=== PATIENT | female | born 1985 | race Caucasian/White ===

== ENCOUNTER 2020-08-21 15:24 | Outpatient (CLI) | payer OTHER, SELFPAY ==
--- NOTE | ~2020-08-21 | US_ITS ---
EXAMINATION: US pelvic complete w TV EXAM DATE: 08/21/2020 16:12 INDICATION: Endometriosis. Fertility preservation material. TECHNIQUE: Pelvic transabdominal and transvaginal sonogram was performed. There are multiple graysca le and Doppler images available for interpretation. There is no prior study for comparison. FINDINGS: Uterus measures 7.1 x 3.9 x 4.9 cm, with 2 focal regions consistent with fibroids, largest in the posterior myometrium measuring up to 2.8 cm. The other is subcentimeter in size. Endometrial stripe measures 15 mm, upper limits of normal in thickness. There is no free pelvic fluid. Right adnexa: The ovary measures 3.0 x 1.8 x 1.6 cm and is morphologically normal. Ovarian vascular f low confirmed. Left adnexa: The ovary measures 4.7 x 2.0 x 1.3 cm and is morphologically normal. Ovarian vascular fl ow confirmed. IMPRESSION: 1. Fibroids. Reviewed, dictated and finalized at location A. IMPRESSION: 1. Fibroids.
== END 2020-08-21 15:25 | disposition home or self-care (01) ==
LOC: ANHIMG 15:29
PROVIDERS: Visit Provider Obstetrics & Gynecology
DX: Z31.84 Encounter for fertility preservation procedure (principal); D25.9 Leiomyoma of uterus, unspecified
CPT/HCPCS: 76830; 76856